=== PATIENT | male | born 1960 ===

== ENCOUNTER 2017-09-05 15:36 | Inpatient (IN) | payer OTHER ==
[~2017-09-05] VITALS: Ht 177.8 cm; Wt 109.8 kg
--- NOTE | 2017-09-05 16:20 | NUR ---
PATIENT ARRIVED VIA GURNEY AND AMBULANCE, 103/69, 98% ON ROOM AIR, 98.6 ORAL TEMPERATURE, 83 PULSE, 19 RESPIRATIONS, COMPLAINS OF PAIN 6/10, NO SIGNS OF DISTRESS, REPORT RECEIVED FROM ISELA TRONCOSO (ROBERTO LANDAVERDE) CLAIMS NORCO GIVEN TO AT 1330, SURGICAL DRESSING NOTED ON LEFT KNEE, UNABLE TO OPEN DRESSING TILL SURGEON DOES FIRST DRESSING CHANGE, DISCOLORATION NOTED TO BOTH SIDES OF GROIN AREA, DOCTOR JACSKON NOTIFIED OF PATIENTS ARRIVAL ON UNIT
[2017-09-05] MEDS ORDERED: Z GUARD REMEDY PASTE 57 GM TUBE TOP PRN (16:45)
[2017-09-05 16:49] VITALS: BP 103/69
[2017-09-05] MEDS ORDERED: HYDR1AMP2 IV (17:53)
[2017-09-05] MEDS ORDERED: CELE200C PO (17:53)
[2017-09-05] MEDS ORDERED: DOCU100C36 PO (17:53)
[2017-09-05] MEDS ORDERED: ZOLP5TAB2 PO (17:53)
[2017-09-05] MEDS ORDERED: HYDR-3326 PO (17:53)
[2017-09-05] MEDS ORDERED: ACET-2154 PO (17:53)
[2017-09-05] MEDS ORDERED: ASPI-1100 PO (17:53)
[2017-09-05] MEDS ORDERED: MAGN400O6 PO (17:59)
[2017-09-05 19:30] VITALS: BP 121/63
[2017-09-05] MEDS ORDERED: OXYCODONE/APAP 5-325 MG TABLET PO PRN ×2 (19:30→19:45)
[2017-09-05] MEDS ORDERED: HYDROMORPHONE 1 MG/1 ML DISP.SYRIN IM PRN (19:30)
[2017-09-05] MEDS ORDERED: HYDROMORPHONE 4 MG/1 ML DISP.SYRIN IM PRN (19:45)
--- NOTE | 2017-09-05 19:45 | NUR ---
patient very upset upon rounds. patient complaining of severe pain on the left knee 06/12. explained to the patient that waiting for the doctor to put the order for pain med. patient want to leave because he says he's been waiting for 3 1/2 hrs and was in excruciating pain. Dilaudid 1 mg IM given as ordered @ 2002 via right deltoid. Reassess patient after 30 minutes, patient still have a little bit pain but its manageable. Says he felt much better. Oxycontin 20mg given @ scheduled time. Will monitor patient. Needs attended.
[2017-09-05] MEDS ORDERED: DOCUSATE SODIUM 100 MG CAPSULE PO SCH (20:15)
[2017-09-05] MEDS ORDERED: ZOLPIDEM 5 MG TABLET PO PRN (20:15)
[2017-09-05] MEDS ORDERED: ACETAMINOPHEN 325 MG TABLET PO PRN (20:15)
[2017-09-05] MEDS: OXYCODONE HCL 20 MG TAB.SR.12H PO SCH (21:25)
[2017-09-06] MEDS: OXYCODONE HCL 20 MG TAB.SR.12H PO SCH ×3 (05:41→20:23)
--- NOTE | 2017-09-06 06:31 | NUR ---
SLEPT WELL MOST OF THE SHIFT. NO ACUTE DISTRESS NOTED. NEEDS ATTENDED. LEFT KNEE DRESSING CLEAN DRY AND INTACT. VOIDING WELL. PAIN MEDS GIVEN AT SCHEDULED TIMES WITH RELIEF.
--- NOTE | 2017-09-06 07:10 | NUR ---
Received patient awake, alert and orient lying on bed on a semi- muniz's position with no SOB, distress or display of any discomforts at this time. Call light within his reach.. Able to verbalize needs. All needs were attended and anticipated. Encouraged patient to use call light whenever assistance is needed. Will continue to monitor.
--- NOTE | 2017-09-06 07:15 | NUR ---
Patient received awake, alert and oriented able to verbalize needs with his call light within reach. no shortness of breath or distress noted. All needs were attended and anticipated. Will continue to monitor.
[2017-09-06 08:00] VITALS: BP 125/76
[2017-09-06] MEDS: ASPIRIN EC 325 MG TABLET.DR PO SCH ×2 (08:49→17:25)
[2017-09-06] MEDS: CELECOXIB 200 MG CAPSULE PO SCH ×2 (08:49→17:25)
--- NOTE | 2017-09-06 09:30 | NUR ---
Patient noted awake, alert and oriented, worked with OT, tolerated well. Will continue to monitor.
--- NOTE | 2017-09-06 14:50 | NUR ---
Patient was seen and examined by Dr. Roper with no new orders at this time.
--- NOTE | 2017-09-06 18:32 | NUR ---
Patient awake, alert and oriented lying on his bed on a semi- muniz's position with no SOB, distress or any display of discomforts at this time. Patient remained stable throughout the shift. Able to make needs known. All needs were attended and anticipated. call light within reach. Encouraged patient to use call light whenever assistance is needed.
[2017-09-06 19:45] VITALS: BP 102/63
--- NOTE | 2017-09-06 22:03 | NUR ---
pt seen on rounding. pt continues to be alert and oriented. pt given pain meds. no signs of infection on left knee. no loc changes. vitals stable. will continue to monitor.
[2017-09-07] MEDS: OXYCODONE HCL 20 MG TAB.SR.12H PO SCH ×3 (06:00→21:21)
--- NOTE | 2017-09-07 06:01 | NUR ---
pt seen to have don colored urine. endorse to night fit nurse.
--- NOTE | 2017-09-07 06:47 | NUR ---
pt slept throughtout the night. pt used urinal. pt had don colored urine. will endorse to manager shift nurse.
--- NOTE | 2017-09-07 07:10 | NUR ---
Received patient asleep, lying on hi sbed on a semi- muniz's position with no SOB, distress noted. patient is easily aroused with no complaints of pain or any discomforts at this time. Alert and oriented and able to verbalize needs. All needs were attended and anticipated. call light placed within his reach. patient was encouraged to use his call light whenever assistance is needed especially when getting out of bed for safety. Will continue to monitor.
[2017-09-07 07:51] VITALS: BP 128/67
[2017-09-07] MEDS: ASPIRIN EC 325 MG TABLET.DR PO SCH ×2 (08:25→16:50)
[2017-09-07] MEDS: CELECOXIB 200 MG CAPSULE PO SCH ×2 (08:26→16:50)
--- NOTE | 2017-09-07 09:15 | NUR ---
patient awake, alert and oriented, noted seated on his wheelchair accompanied by physical therapist going to the rehab gym to perform his exercises without difficulty or any display of discomforts at this time. Will continue to monitor.
--- NOTE | 2017-09-07 14:15 | NUR ---
INTERDISCIPLINARY TEAM CONFERENCE
[2017-09-07] MEDS: MAGNESIUM HYDROXIDE 30 ML LIQUID UDC PO SCH (17:53)
--- NOTE | 2017-09-07 18:36 | NUR ---
Patient awake, alert and oriented, lying on bed with no SOB, distress or discomforts noted. All needs were attended and anticipated. Call light placed within reach. Encouraged patient to use call light whenever assistance is needed. Will continue to monitor .
[2017-09-07 19:30] VITALS: BP 108/68
--- NOTE | 2017-09-07 20:30 | NUR ---
Received pt on bed, asleep. No apparent distress noted. Breathing even and unlabored with normal respirations. Call light placed within reach. All needs attended. Will continue to monitor.
[2017-09-08] MEDS: OXYCODONE HCL 20 MG TAB.SR.12H PO SCH ×3 (06:22→22:07)
--- NOTE | 2017-09-08 06:57 | NUR ---
Pt. well rested the entire shift. No acute respi. distress noted. All due meds given. Kept clean, dry and comfortable. Will endorse to AM shift.
[2017-09-08] MEDS: ASPIRIN EC 325 MG TABLET.DR PO SCH ×2 (09:04→17:27)
[2017-09-08] MEDS: CELECOXIB 200 MG CAPSULE PO SCH ×2 (09:04→17:27)
--- NOTE | 2017-09-08 09:35 | NUR ---
SBAR report received, board updated. Pt awake, alert, oriented x4. No c/o pain. Pt compliatn with routine morning medications, requested ATivan for mild anxiety r/t anticipated d/c at noon, administered per PRN orders. business line manager currently consulting with Pt r/t discharge concerns. All safety and comfort measures met. Call light placed within reach. Will continue to monitor.
--- NOTE | 2017-09-08 09:38 | NUR ---
Please disregard previous note. Pt Jose Martinez report also received this morning, board updated. Pt awake, alert, oriented x4. No c/o pain, slight dizziness r/t oxycodone medication earlier this morning. V/S WNL. Pt compliant with all routine morning medications. All safety and comfort measures met. Call light placed within reach. Will continue to monitor.
[2017-09-08 11:26] VITALS: BP 123/73
--- NOTE | 2017-09-08 18:14 | NUR ---
Pt laying comfortably in bed, actively participated in all scheduled therapies today. CPM applied as ordered, well tolerated. All comfort and safety measures met at this time. Call light and personal items within reach. Will continue to monitor and endorse to oncoming certified master safecracker.
--- NOTE | 2017-09-08 20:00 | NUR ---
Received pt on bed asleep. No signs/symptoms of acute distress noted. Denies pain during this time. No SOB. Encouraged pt to verbalize needs and concerns and to call for assistance if needed. Call light placed within reach. All needs attended.
[2017-09-08 20:56] VITALS: BP 107/66
--- NOTE | 2017-09-09 05:27 | NUR ---
Patient slept well throughout the night. No acute distress noted. No complaints of pain or discomfort. Call light placed within reach. All needs attended to promptly
[2017-09-09] MEDS: OXYCODONE HCL 20 MG TAB.SR.12H PO SCH ×3 (05:57→21:03)
--- NOTE | 2017-09-09 07:00 | NUR ---
Received pt in bed, aa/ox3, no acute distress noted. pt denies any pain or discomfort. Left knee with steri strips intact, good peripheral pulses present. Pt denies any numbness or tingling. plan of care discussed. Call light and personal belongings within reach. Bed kept low/locked position. Addendum: 09/09/17 at 0946 by STEPHEN GUTIERREZ RN Left knee with surgical dressing clean and intact.
[2017-09-09] MEDS: CELECOXIB 200 MG CAPSULE PO SCH ×2 (08:41→17:14)
[2017-09-09] MEDS: ASPIRIN EC 325 MG TABLET.DR PO SCH ×2 (08:41→17:14)
[2017-09-09 08:56] VITALS: BP 106/68
--- NOTE | 2017-09-09 17:50 | NUR ---
NO ACUTE CHANGES NOTED, PT WAS ABLE TO PARTICIPATE WITH PHYSICAL THERAPY, SCHEDULE PAIN MEDICATIONS ADMINISTERED ORDER, WITH GOOD PAIN RELIEF. CALL LIGHT KEPT WITHIN REACH, PT ENCOURAGED TO CALL FOR ASSISTANCE.
--- NOTE | 2017-09-09 21:00 | NUR ---
received pt on bed, alert and awake. Pleasant, calm and cooperative to care. No apparent distress was noted. No SOB noted. Routine pain meds given as ordered. Vital signs stable. Call light within reach. All needs attended.
[2017-09-09 21:16] VITALS: BP 120/70
--- NOTE | 2017-09-10 05:53 | NUR ---
Pt slept well throughout the shift. No complaints of pain. No acute distress noted. Ambulated to the bathroom with walker, tolerated well. Safety and fall precautions observed and maintained. Call light within reach. All needs attended.
[2017-09-10] MEDS: OXYCODONE HCL 20 MG TAB.SR.12H PO SCH ×3 (06:20→21:02)
--- NOTE | 2017-09-10 07:45 | NUR ---
patient noted sleeping in bed, no facial cues of pain noted, no signs of distress, call light in reach, bed locked and in lowest position
[2017-09-10] MEDS: ASPIRIN EC 325 MG TABLET.DR PO SCH ×2 (08:31→17:12)
[2017-09-10] MEDS: CELECOXIB 200 MG CAPSULE PO SCH ×2 (08:32→17:10)
[2017-09-10 09:53] VITALS: BP 116/69
--- NOTE | 2017-09-10 21:00 | NUR ---
awake alert and oriented. resting in bed at beginning of shift.needs attended. patient left knee dressing clean dry and intact. on scheduled oxycontin 20mg given as ordered. voiding without difficulty. no acute distress noted. will monitor patient.
[2017-09-10 21:31] VITALS: BP_SYST 103; BP_SYST 106; BP_DIAS 66; BP_DIAS 67
[2017-09-11] MEDS: OXYCODONE HCL 20 MG TAB.SR.12H PO SCH ×3 (05:54→21:25)
[2017-09-11 07:10] VITALS: BP 111/65
--- NOTE | 2017-09-11 07:59 | NUR ---
PATIENT NOTED AMBULATING IN HALLWAY ON UNIT WITH WALKER, ASSISTED BACK TO ROOM FOR BREAKFAST, NO COMPLAINTS OF PAIN AT THIS TIME, NO SIGNS OF DISTRESS, CALL LIGHT PLACED IN REACH, BED LOCKED AN DIN LOWEST POSITION, ALL NEEDS MET AT THIS TIME
[2017-09-11] MEDS: ASPIRIN EC 325 MG TABLET.DR PO SCH ×2 (09:25→17:41)
[2017-09-11] MEDS: CELECOXIB 200 MG CAPSULE PO SCH ×2 (09:25→17:41)
[2017-09-11] MEDS: MAGNESIUM HYDROXIDE 30 ML LIQUID UDC PO SCH (14:09)
[2017-09-11 17:00] VITALS: BP 116/66
[2017-09-11 19:30] VITALS: BP 128/78
--- NOTE | 2017-09-11 20:55 | NUR ---
Pt resting comfortably in bed. Family at bedside. AAO x4. Room air. No acute distress noted. No c/o pain or discomfort at this time. Safety measures maintained. Call light and personal belongings within reach. Will continue to monitor.
--- NOTE | 2017-09-12 05:37 | NUR ---
Pt slept intermittently at night. Had loose bowel movement 2x at night. Pt took a shower at night. Pt had taken colace, milk of magnesia, and prune juice. He haven't had bowel movement for 3 days prior to this. Dressing on surgical site intact, has yet to be seen by MD. Vital signs stable. All needs attended to promptly. Will endorse to day shift RN. Continue to monitor.
[2017-09-12] MEDS: OXYCODONE HCL 20 MG TAB.SR.12H PO SCH ×2 (05:52→13:02)
[2017-09-12 07:07] VITALS: BP 112/69
[2017-09-12] MEDS: CELECOXIB 200 MG CAPSULE PO SCH ×2 (08:27→17:32)
[2017-09-12] MEDS: ASPIRIN EC 325 MG TABLET.DR PO SCH ×2 (08:27→17:33)
[2017-09-12] MEDS ORDERED: IBUPROFEN 800 MG TABLET PO PRN ×2 (16:30→16:45)
[2017-09-12] MEDS ORDERED: FLEET ENEMA 133 ML BOTTLE RC PRN (16:30)
[2017-09-12] MEDS ORDERED: DOCUSATE SODIUM 100 MG CAPSULE PO PRN (16:37)
[2017-09-12] MEDS ORDERED: MAGNESIUM HYDROXIDE 30 ML LIQUID UDC PO PRN (16:40)
[2017-09-12] MEDS ORDERED: IBUPROFEN 600 MG TABLET PO PRN (16:45)
[2017-09-12] MEDS ORDERED: BISACODYL 10 MG SUPP.RECT RC SCH (16:45)
[2017-09-12] MEDS ORDERED: TRAMADOL HCL 50 MG TABLET PO PRN (16:45)
[2017-09-12] MEDS ORDERED: BISACODYL 10 MG SUPP.RECT RC PRN (17:15)
[2017-09-12 19:30] VITALS: BP 121/75
--- NOTE | 2017-09-12 20:07 | NUR ---
aaox4 summers's resting in bed upon rounds. needs attended.kept comfortable. will monitor patient. patient had an episode of watery BM this shift. kept clean and dry. denies any pain at this time. will monitor for loose stools. voiding well. left knee dressing clean dry and intact.
--- NOTE | 2017-09-13 04:54 | NUR ---
pain well controlled. needs attended. voiding freely.no more episode of loose BM. no acute distress noted. kept comfortable. left knee dressing clean dry and intact. Dr Tariq (ortho) will come and see patient. slept well throughout the night.will monitor patient.
[2017-09-13 07:05] VITALS: BP 112/71
--- NOTE | 2017-09-13 08:13 | NUR ---
Patient noted resting in bed with eyes closed, no facial cues of pain noted, no signs of distress, call light in reach, bed locked and in lowest position, x [address]
[2017-09-13] MEDS: ASPIRIN EC 325 MG TABLET.DR PO SCH ×2 (08:57→17:05)
[2017-09-13] MEDS: MIRALAX 17 GM POWD.PACK PO SCH (08:57)
[2017-09-13] MEDS: CELECOXIB 200 MG CAPSULE PO SCH ×2 (08:57→17:05)
--- NOTE | 2017-09-13 19:35 | NUR ---
Patient resting comfortably in bed. AAO x4. No acute distress noted. No c/o pain or discomfort. Safety measures maintained. Call light and personal belongings within reach. Will continue to monitor.
[2017-09-13 20:27] VITALS: BP 104/64
--- NOTE | 2017-09-14 06:55 | NUR ---
Patient slept comfortably t/o the night. Did not request for any pain meds. Assisted to the bathroom as needed. All needs attended to promptly. Meds given per MD's order. Will endorse to day shift RN. Continue to monitor.
[2017-09-14 07:37] LABS: BASOPHILS # (AUTO) 0.1 K/uL (0.0-8.0); BASOPHILS % (AUTO) 1.1 % (0.0-2.0); EOSINOPHILS # (AUTO) 0.3 K/uL (0.0-0.7); EOSINOPHILS % (AUTO) 4.5 % (0.0-7.0); HEMATOCRIT 37.8 % (36.7-47.1); LYMPHOCYTES # (AUTO) 1.2 K/uL (20.0-40.0); LYMPHOCYTES % (AUTO) 16.7 % (20.5-51.5); MEAN CORPUSCULAR HEMOGLOBIN 31.7 uug (23.8-33.4); MEAN CORPUSCULAR HGB CONC 34 g/dL (32.5-36.3); MEAN CORPUSCULAR VOLUME 92.2 fL (73.0-96.2); MONOCYTES # (AUTO) 0.6 K/uL (2.0-10.0); MONOCYTES % (AUTO) 8.3 % (0.0-11.0); NEUTROPHILS # (AUTO) 4.9 K/uL (1.8-8.9); NEUTROPHILS % (AUTO) 69.4 % (38.5-71.5); PLATELET COUNT (AUTO) 431 K/uL (152-348); RED BLOOD CELL COUNT(AUTO) 4.09 MIL/uL (4.06-5.63); WHITE BLOOD COUNT (AUTO) 7.1 K/uL (3.6-10.2)
[2017-09-14 07:57] LABS: BILIRUBIN,TOTAL 0.8 mg/dL (0.2-1.0); CREATININE 0.9 mg/dL (0.6-1.3); MAGNESIUM 2.2 mg/dL (1.8-2.4); PHOSPHOROUS 3.2 mg/dL (2.5-4.9); POTASSIUM 4.4 mmol/L (3.5-5.1); TOTAL PROTEIN, SERUM 7.4 g/dL (6.4-8.2)
[2017-09-14 08:00] VITALS: BP 133/75
[2017-09-14] MEDS: CELECOXIB 200 MG CAPSULE PO SCH ×2 (09:48→17:24)
[2017-09-14] MEDS: MIRALAX 17 GM POWD.PACK PO SCH (09:48)
[2017-09-14] MEDS: ASPIRIN EC 325 MG TABLET.DR PO SCH ×2 (09:48→17:24)
--- NOTE | 2017-09-14 14:33 | NUR ---
INTERDISCIPLINARY TEAM CONFERENCE
--- NOTE | 2017-09-14 16:46 | NUR ---
pt seen on rounding. pt had no signs of constipation and had a bowel movement. pt contines to be alert and oriented. no signs of distress. pt put on cpm machine placed by MERCANTILE REPORTER. will continue to monitor.
--- NOTE | 2017-09-14 19:09 | NUR ---
pt stable throughout the day. no pain meds given through shift. pt had a bm and voided during shift. no complaints of constipation. will endorse to night shfit nurse.
--- NOTE | 2017-09-14 19:43 | NUR ---
Received pt on bed alert and awake. No signs/symptoms of distress noted. Denies pain. no SOB noted. Encouraged to verbalize needs and concerns. Call light within reach. All needs attended.
[2017-09-14 20:14] VITALS: BP 103/63
--- NOTE | 2017-09-15 05:46 | NUR ---
Patient slept well throughout the shift. No signs/symptoms of distress noted. No complaints of pain or discomfort. Frequently checked for safety. Call light within reach. All needs attended.
[2017-09-15 07:30] VITALS: BP 112/73
[2017-09-15] MEDS: MIRALAX 17 GM POWD.PACK PO SCH (09:32)
[2017-09-15] MEDS: ASPIRIN EC 325 MG TABLET.DR PO SCH ×2 (09:33→17:12)
[2017-09-15] MEDS: CELECOXIB 200 MG CAPSULE PO SCH ×2 (09:33→17:12)
--- NOTE | 2017-09-15 09:37 | NUR ---
SBAR report received near bedside, board updated. Pt v/s taken and WNL. Pt alert and oriented x4. Pt assessed, no c/o pain or SOB noted, Pt on RA. Pt reports a bowel movement earlier this morning, with slight blood reminisce, assisted by POLITICAL SCIENTIST. Pt compliant with all routine morning medication administration, while in the gym actively participating in PT. Today's plan of care discussed, Pt expected to participate in OT scheduled for later this afternoon. All safety and comfort measures met. Will continue to monitor and follow up with bowel management.
--- NOTE | 2017-09-15 19:06 | NUR ---
Pt denies any discomfort or pain throughout shift. Pt reports 3 bowel movements total today, only the first with bloody characteristic and able to pass with ease. Call light within reach. Will endorse to on coming shift boss.
[2017-09-15 19:55] VITALS: BP 112/62
--- NOTE | 2017-09-15 20:03 | NUR ---
received pt lying on bed comfortably with no signs of distress noted. No complaints of pain or discomfort. Breathing even and unlabored. Vital signs WNL. Call light placed within reach. Safety and fall precuations observed and maintained. All needs anticipated. Will continue to monitor.
--- NOTE | 2017-09-16 05:26 | NUR ---
patient slept well throughout the shift. No changes observed, no acute distress noted. No complaints of pain or discomfort. Call light placed within reach. All needs attended.
[2017-09-16] MEDS: MIRALAX 17 GM POWD.PACK PO SCH (08:43)
[2017-09-16] MEDS: CELECOXIB 200 MG CAPSULE PO SCH ×2 (08:43→16:22)
[2017-09-16] MEDS: ASPIRIN EC 325 MG TABLET.DR PO SCH ×2 (08:43→16:21)
--- NOTE | 2017-09-16 08:43 | NUR ---
pt seen on rounding. pt contineus to be alert and oriented. pt states that he is not constipated and had a bm. pt used urinal to void. pt states that he isnt on any pain. vitals stable. no signs of infection on site. vitals stable. will continue to monitor.
[2017-09-16 09:01] VITALS: BP 103/61
--- NOTE | 2017-09-16 18:00 | NUR ---
Patient is in bed, lying comfortably in bed awake and alert with CPM device in place on his left knee, tolerated well. Patient denies pain at this time, needs attended promptly, due medications given, bed in locked position, fall precautions implemented. Patient tolerated physical and occupational therapy well, pain management provided routinely before and after therapy. Kept comfortable clean and dry. Call light kept in easy reach.
[2017-09-16 20:00] VITALS: BP 110/61
--- NOTE | 2017-09-16 20:30 | NUR ---
Received pt lying comfortably with HOB elevated and no signs of distress. No complaints of pain or discomfort. Breathing even and unlabored. Vital signs stable. Call light placed within reach. Safety and fall precautions observed and maintained. Encouraged to verbalize needs and concerns. All needs anticipated. Will continue to monitor.
--- NOTE | 2017-09-17 05:24 | NUR ---
Patient slept well throughout the shift. No changes observed. No complaints of pain or discomfort. Breathing even and unlabored with normal respirations. Call light placed within reach. All needs attended.
[2017-09-17 07:54] VITALS: BP 117/66
[2017-09-17] MEDS: MIRALAX 17 GM POWD.PACK PO SCH (08:36)
[2017-09-17] MEDS: CELECOXIB 200 MG CAPSULE PO SCH ×2 (08:36→17:13)
[2017-09-17] MEDS: ASPIRIN EC 325 MG TABLET.DR PO SCH ×2 (08:50→17:13)
--- NOTE | 2017-09-17 09:51 | NUR ---
SBAR report received near bedside, board updated. Pt awake, alert, and oriented x4. Pt compliant with all routine morning medications, actively participating with OT. Pt assessed, no SOB or acute distress noted, no c/o pain. All comfort and safety measures met. Will continue to monitor.
--- NOTE | 2017-09-17 19:00 | NUR ---
Pt visiting with family in the dinning room. No c/o pain, ambulating steadily with walker. All needs addressed. Will endorse to oncoming shift production associate.
--- NOTE | 2017-09-17 20:40 | NUR ---
Received patient in bed, laying comfortable and was watching TV. Denies of any pain or discomfort. Verbally responsive and able to make needs known. Vital signs taken and recorded. BP 101/58, T 97.6, P 69, R 18 and O2 sat of 99% on RA. Call light place within reach. Will monitor the patient.
[2017-09-17 21:47] VITALS: BP 101/58
--- NOTE | 2017-09-18 02:20 | NUR ---
Did the hourly rounds and seen pt.still awake. Asked pt. if he's okay or if he's in pain but denies of any pain. Pt. said he can't sleep because he can't wait to go home today. He said he's okay and that he's fine, he will try to sleep again. made sure that call light was within his reach.
--- NOTE | 2017-09-18 06:18 | NUR ---
Pt. able to sleep. Vital signs WNL. Breathing even and non labored. All needs attended to. Routine care provided. Call light within his reach. Will endorse to AM nurse.
[2017-09-18] MEDS: CELECOXIB 200 MG CAPSULE PO SCH (09:37)
[2017-09-18] MEDS: ASPIRIN EC 325 MG TABLET.DR PO SCH (09:37)
[2017-09-18] MEDS: MIRALAX 17 GM POWD.PACK PO SCH (09:37)
--- NOTE | 2017-09-18 14:13 | NUR ---
D/C NOTE D/C TO HOME WITH AND MOTHER IN LAW. D/C INSTRUCTIONS GIVEN RE: F/U WITH HOME HEALTH INFORMATION PROVIDED IN THE INSTRUCTIONS. HE VERBALIZED UNDERSTANDING. PICS OF KNEE TAKEN. D/C ORDER IN CHART. REFUSED FLU/PNA VACCINES. MEDS FAXED TO PHARMACY. PHONE NUMBER PROVIDED BY THE .
== END 2017-09-18 13:30 | disposition home health service (06) | DRG 561 ==
PROVIDERS: ADMIT Physical Medicine & Rehabilitation Pain Medicine; ATTEND Physical Medicine & Rehabilitation Pain Medicine
DX: Z47.1 Aftercare following joint replacement surgery (principal); E66.9 Obesity, unspecified; Z96.652 Presence of left artificial knee joint; Z68.34 Body mass index [BMI] 34.0-34.9, adult; R26.9 Unspecified abnormalities of gait and mobility; R14.0 Abdominal distension (gaseous); F32.9 Major depressive disorder, single episode, unspecified; T14.90XD Injury, unspecified, subsequent encounter; X58.XXXD Exposure to other specified factors, subsequent encounter; K59.00 Constipation, unspecified; M17.2 Bilateral post-traumatic osteoarthritis of knee
CPT/HCPCS: 36415; 83735; 84100; 85025; 97110; 97116; 97530; 97535; A4663; J1170